=== PATIENT | male | born 1975 | race Hispanic/Latino ===

== ENCOUNTER 2018-01-12 23:44 | Emergency (ER) | payer BC, SELFPAY ==
[2018-01-13] MEDS ORDERED: Acetaminophen 500 MG TAB ONE (01:01)
[2018-01-13] MEDS ORDERED: Dexamethasone 4 MG TAB ONE (01:01)
[2018-01-13] MEDS ORDERED: Lidocaine 2% Viscous Solution 10 ML, Aluminum & Magnesium Hydroxide 20 ML, Donnatal Eli... SSW SCH (01:15)
[2018-01-13] MEDS ORDERED: Ketorolac Tromethamine 30 MG/ML VIAL ONE (02:27)
--- NOTE | 2018-01-13 08:38 | RAD ---
PA AND LATERAL VIEWS OF CHEST: Date: 01/13/18 HISTORY: Cough. FINDINGS: The heart size is normal. No focal areas of consolidation, pneumothorax, or pleural effusions are see n. IMPRESSION: No radiographic evidence of acute cardiopulmonary process. POS: [facility]
== END 2018-01-13 03:07 | disposition home or self-care (01) ==
LOC: ERS 23:44
DX: J20.9 Acute bronchitis, unspecified (principal); E11.9 Type 2 diabetes mellitus without complications; Z79.84 Long term (current) use of oral hypoglycemic drugs
CPT/HCPCS: 71046; 96372; J1885; J7620; J8540

== ENCOUNTER 2018-11-14 18:32 | Emergency (ER) | payer SELFPAY ==
--- NOTE | 2018-11-14 20:27 | RAD ---
CHEST 2 VIEWS: Date: 11/14/18 HISTORY: Cough. COMPARISON: 01/13/18. FINDINGS: Normal cardiac silhouette. Pulmonary vessels and hilum are normal. Costophrenic angles are clear. No consolidation or mass. No pneumothorax or osseous abnormalities. IMPRESSION: No acute cardiopulmonary process. POS: [facility]
== END 2018-11-14 23:07 | disposition home or self-care (01) ==
LOC: ERS 18:32
DX: J20.9 Acute bronchitis, unspecified (principal); E11.9 Type 2 diabetes mellitus without complications; Z79.84 Long term (current) use of oral hypoglycemic drugs
CPT/HCPCS: 36416; 71046; 87804